=== PATIENT | male | born 1995 | race Two or more races ===

== ENCOUNTER 2020-11-30 22:44 | Inpatient (IN) | payer MEDICAID, OTHER ==
[~2020-11-30] VITALS: Ht 167.6 cm; Wt 49.9 kg
[2020-11-30 23:31] LABS: BASOPHILS % (AUTO) 0.6 % (0.0-2.0); EOSINOPHILS % (AUTO) 0.9 % (1.0-6.0); HEMATOCRIT 45.6 % (41-53); HEMOGLOBIN 15.5 g/dL (13.5-17.5); LYMPHOCYTES # (AUTO) 1.5 K/uL (1.0-4.8); LYMPHOCYTES % (AUTO) 12.6 % (22.0-44.0); MEAN CORPUSCULAR HEMOGLOBIN 32.6 pg (26.0-34.0); MEAN CORPUSCULAR VOLUME 96 fL (80-100); MONOCYTES # (AUTO) 0.6 K/uL (0.1-1.0); NEUTROPHILS # (AUTO) 9.5 K/uL (1.8-7.7); NEUTROPHILS % (AUTO) 80.9 % (40.0-70.0); PLATELET COUNT (AUTO) 287 K/uL (150-450); RED BLOOD CELL COUNT(AUTO) 4.76 MIL/uL (4.50-5.90); RED CELL DISTRIBUTION WIDTH 13.7 % (11.5-14.5)
[2020-11-30 23:42] LABS: ANION GAP 15 mmol/L (8-16); CALCIUM, TOTAL 9.1 mg/dL (8.8-10.5); CARBON DIOXIDE 28 mmol/L (22-29); CHLORIDE 102 mmol/L (98-107); CREATININE 0.96 mg/dL (0.60-1.30); GLOMERULAR FILTR. RATE CALC > 60 mL/min (>60); GLUCOSE,RANDOM 172 mg/dL (70-110); POTASSIUM 3.8 mmol/L (3.5-5.1); SODIUM SERUM 145 mmol/L (136-145); UREA NITROGEN, BLOOD 13 mg/dL (7-18)
[2020-11-30] MEDS ORDERED: QUEtiapine FUMARATE 100 MG TABLET PO PRN (23:45)
[2020-11-30 23:48] LABS: ALANINE AMINOTRANSFERASE 24 U/L (12-78); ALBUMIN 4.2 g/dL (3.4-5.0); ALKALINE PHOSPHATASE 90 U/L (46-116); ASPARTATE AMINOTRANSFERASE 15 U/L (15-37); BILIRUBIN,TOTAL 0.3 mg/dL (0.1-1.0); TOTAL PROTEIN, SERUM 7.8 g/dL (6.4-8.2)
[2020-12-01 00:31] LABS: APPEARANCE,URINE CLEAR (CLEAR); BILIRUBIN,URINE NEGATIVE (NEGATIVE); GLUCOSE, URINE (UA) 100 mg/dL (NEGATIVE); KETONES,URINE TRACE mg/dL (NEGATIVE); LEUKOCYTE ESTERASE ,URINE NEGATIVE (NEGATIVE); NITRATE,URINE NEGATIVE (NEGATIVE); OCCULT BLOOD,URINE NEGATIVE (NEGATIVE); PROTEIN,URINE NEGATIVE (NEGATIVE)
[2020-12-01 00:33] LABS: COVID AG,FIA SOURCE NASOPHARYNGEAL
[2020-12-01 00:46] LABS: CHOL/HDL RATIO 2.8 (4.2-7.3); CHOLESTEROL 197 mg/dL (131-200); HDL CHOLESTEROL 70 mg/dL (40-60); LDL CHOL (CALC.) 99 mg/dL (0-130); TRIGLYCERIDES 142 mg/dL (15-150)
[2020-12-01 00:53] LABS: BACTERIA,URINE Rare /HPF (None Seen); RBC,URINE None Seen /HPF (0-2); WBC,URINE 0-2 /HPF (0-5)
[2020-12-01 01:08] LABS: AMPHET/METH SCREEN,URINE NEGATIVE (NEGATIVE); BARBITURATE SCREEN, URINE NEGATIVE (NEGATIVE); BENZODIAZEPINES SCREEN,URINE NEGATIVE (NEGATIVE); CANNABINOID SCREEN,URINE POSITIVE (NEGATIVE); COCAINE SCREEN,URINE NEGATIVE (NEGATIVE); METHADONE SCREEN, URINE NEGATIVE (NEGATIVE); OPIATE SCREEN,URINE NEGATIVE (NEGATIVE)
[2020-12-01 01:26] LABS: PHENCYCLIDINE SCREEN,URINE NEGATIVE (NEGATIVE)
[2020-12-01 01:38] VITALS: BP 149/80
[2020-12-01 02:19] VITALS: BP 149/80
[2020-12-01] MEDS ORDERED: MAGNESIUM HYDROXIDE SUSPENSION 30 ML UDCUP PO PRN (09:45)
[2020-12-01] MEDS ORDERED: ONDANSETRON HCL 4 MG TABLET PO PRN (09:45)
[2020-12-01] MEDS ORDERED: LOPERAMIDE HCL 2 MG CAPSULE PO PRN (09:45)
[2020-12-01] MEDS ORDERED: PETROLATUM,WHITE 28 GM JELLY TP PRN (09:45)
[2020-12-01] MEDS ORDERED: GuaiFENesin/D-METHORPHAN [SUGAR-FREE] 200-20MG/10 ML SYRUP UDCUP PO PRN (09:45)
[2020-12-01] MEDS ORDERED: CloNIDine HCL 0.1 MG TABLET PO PRN (09:45)
[2020-12-01] MEDS ORDERED: NICOTINE 14 MG/24 HOUR PATCH TD PRN (09:45)
[2020-12-01] MEDS ORDERED: ALBUTEROL SULFATE HFA 90 MCG/PUFF 8 GM INHALER IH PRN (09:45)
[2020-12-01] MEDS ORDERED: DOCUSATE SODIUM 100 MG CAPSULE PO PRN (09:45)
[2020-12-01] MEDS ORDERED: MAG HYDROX/AL HYDROX/SIMETH ES 30 ML SUSPENSION UDCUP PO PRN (09:45)
[2020-12-01 10:00] VITALS: BP 124/84
[2020-12-01] MEDS: ARIPiprazole 5 MG TABLET PO SCH ×2 (13:45→14:29)
[2020-12-01 16:22] VITALS: BP 129/81
[2020-12-01 17:58] VITALS: BP 126/77
[2020-12-01] MEDS: ACETAMINOPHEN 325 MG TABLET PO PRN (17:58)
[2020-12-01 18:58] VITALS: BP 125/69
[2020-12-02] MEDS: ARIPiprazole 5 MG TABLET PO SCH (09:00)
[2020-12-02 09:20] VITALS: BP 119/76
[2020-12-02 16:53] VITALS: BP 124/87
[2020-12-02 17:54] VITALS: BP 127/80
[2020-12-02] MEDS: ACETAMINOPHEN 325 MG TABLET PO PRN (17:54)
[2020-12-02 18:54] VITALS: BP 118/75
[2020-12-03] MEDS: ZOLPIDEM TARTRATE 10 MG TABLET PO PRN ×2 (00:23→20:59)
[2020-12-03] MEDS: ARIPiprazole 5 MG TABLET PO SCH (09:00)
[2020-12-03 09:20] VITALS: BP 132/83
[2020-12-03 16:00] VITALS: BP 113/68
[2020-12-03] MEDS: LORazepam 2 MG TABLET PO PRN (19:50)
[2020-12-04] MEDS: ARIPiprazole 5 MG TABLET PO SCH (09:27)
[2020-12-04] MEDS: LORazepam 2 MG TABLET PO PRN ×2 (09:28→22:39)
[2020-12-04 09:30] VITALS: BP 136/70
[2020-12-04 20:05] VITALS: BP 111/61
[2020-12-04] MEDS: ZOLPIDEM TARTRATE 10 MG TABLET PO PRN (22:39)
[2020-12-05] MEDS: ARIPiprazole 5 MG TABLET PO SCH (08:09)
[2020-12-05 09:56] VITALS: BP 115/61
[2020-12-05] MEDS: ZOLPIDEM TARTRATE 10 MG TABLET PO PRN (21:27)
[2020-12-05] MEDS: LORazepam 2 MG TABLET PO PRN (21:27)
[2020-12-06] MEDS: ARIPiprazole 5 MG TABLET PO SCH (08:30)
[2020-12-06 09:25] VITALS: BP 129/82
[2020-12-06] MEDS: IBUPROFEN 400 MG TABLET PO PRN (10:44)
[2020-12-06 16:25] VITALS: BP 122/81
[2020-12-06 17:51] VITALS: BP 119/79
[2020-12-06] MEDS: ACETAMINOPHEN 325 MG TABLET PO PRN (17:51)
[2020-12-06 18:51] VITALS: BP 121/80
[2020-12-06] MEDS: LORazepam 2 MG TABLET PO PRN (21:19)
[2020-12-06] MEDS: ZOLPIDEM TARTRATE 10 MG TABLET PO PRN (21:19)
[2020-12-07 08:23] VITALS: BP 126/84
[2020-12-07] MEDS: ARIPiprazole 5 MG TABLET PO SCH (09:04)
[2020-12-07] MEDS: ACETAMINOPHEN 325 MG TABLET PO PRN ×2 (09:35→20:13)
[2020-12-07 16:25] VITALS: BP 125/76
[2020-12-07 20:13] VITALS: BP 129/76
[2020-12-07] MEDS: LORazepam 2 MG TABLET PO PRN (21:05)
[2020-12-07] MEDS: ZOLPIDEM TARTRATE 10 MG TABLET PO PRN (21:05)
[2020-12-07 21:13] VITALS: BP 116/77
[2020-12-07 21:51] LABS: COVID AG,FIA SOURCE NASAL SWAB
[2020-12-08] MEDS: ARIPiprazole 5 MG TABLET PO SCH (08:14)
[2020-12-08 08:25] VITALS: BP 132/80
[2020-12-08 14:35] VITALS: BP 117/70
[2020-12-08] MEDS: ACETAMINOPHEN 325 MG TABLET PO PRN (14:49)
[2020-12-08 16:06] VITALS: BP 117/77
[2020-12-08] MEDS: IBUPROFEN 400 MG TABLET PO PRN (17:43)
[2020-12-08] MEDS: ZOLPIDEM TARTRATE 10 MG TABLET PO PRN (20:55)
[2020-12-09 04:06] VITALS: BP 128/97
[2020-12-09 08:00] VITALS: BP 124/74
[2020-12-09] MEDS: ARIPiprazole 5 MG TABLET PO SCH (08:13)
[2020-12-09 10:35] VITALS: BP 132/80
[2020-12-09] MEDS: ACETAMINOPHEN 325 MG TABLET PO PRN (10:58)
[2020-12-09 12:00] VITALS: BP 114/70
[2020-12-09 17:08] VITALS: BP 124/75
[2020-12-10 08:22] VITALS: BP 128/74
[2020-12-10] MEDS: ARIPiprazole 5 MG TABLET PO SCH (08:23)
[2020-12-10 16:30] VITALS: BP 127/82
[2020-12-10] MEDS: ZOLPIDEM TARTRATE 10 MG TABLET PO PRN (20:13)
[2020-12-11 03:49] VITALS: BP 125/80
[2020-12-11 08:00] VITALS: BP 133/90
[2020-12-11] MEDS: ARIPiprazole 5 MG TABLET PO SCH (08:11)
[2020-12-11 08:56] LABS: COVID AG,FIA SOURCE NASAL SWAB
[2020-12-11 16:51] VITALS: BP 106/80
[2020-12-11] MEDS: ZOLPIDEM TARTRATE 10 MG TABLET PO PRN (20:39)
[2020-12-12 04:30] VITALS: BP 126/84
[2020-12-12] MEDS: LORazepam 2 MG TABLET PO PRN ×2 (04:31→16:32)
[2020-12-12] MEDS: ARIPiprazole 5 MG TABLET PO SCH (08:01)
[2020-12-12 08:45] VITALS: BP 121/79
[2020-12-12 17:38] VITALS: BP 117/85
[2020-12-12] MEDS: ZOLPIDEM TARTRATE 10 MG TABLET PO PRN ×2 (20:15→21:31)
[2020-12-13 04:59] VITALS: BP 120/73
[2020-12-13] MEDS: ARIPiprazole 5 MG TABLET PO SCH (08:34)
[2020-12-13 08:37] VITALS: BP 139/90
[2020-12-13] MEDS: ACETAMINOPHEN 325 MG TABLET PO PRN (11:17)
[2020-12-13 16:19] VITALS: BP 104/81
[2020-12-13] MEDS: LORazepam 2 MG TABLET PO PRN (19:35)
[2020-12-13] MEDS: ZOLPIDEM TARTRATE 10 MG TABLET PO PRN (20:31)
[2020-12-14 04:37] VITALS: BP 130/69
[2020-12-14 08:25] VITALS: BP 110/79
[2020-12-14] MEDS: ARIPiprazole 5 MG TABLET PO SCH (08:38)
[2020-12-14] MEDS: LORazepam 2 MG TABLET PO PRN (13:06)
[2020-12-14 17:09] VITALS: BP 116/63
[2020-12-14] MEDS: ZOLPIDEM TARTRATE 10 MG TABLET PO PRN (22:03)
[2020-12-15 03:46] VITALS: BP 135/73
[2020-12-15 08:48] VITALS: BP 119/54
[2020-12-15] MEDS: ARIPiprazole 5 MG TABLET PO SCH (08:48)
[2020-12-15 16:04] VITALS: BP 121/83
[2020-12-15 18:03] VITALS: BP 120/75
[2020-12-15] MEDS: ACETAMINOPHEN 325 MG TABLET PO PRN (18:03)
[2020-12-15 20:31] VITALS: BP 127/80
[2020-12-15] MEDS: LORazepam 2 MG TABLET PO PRN (20:31)
[2020-12-15 21:31] VITALS: BP 119/78
[2020-12-16 08:12] VITALS: BP 118/70
[2020-12-16] MEDS: ARIPiprazole 5 MG TABLET PO SCH (08:18)
[2020-12-16] MEDS: ACETAMINOPHEN 325 MG TABLET PO PRN (14:42)
[2020-12-16 14:43] VITALS: BP 118/71
[2020-12-16 16:08] VITALS: BP 118/71
[2020-12-16] MEDS: LORazepam 2 MG TABLET PO PRN (20:10)
[2020-12-17] MEDS: ARIPiprazole 5 MG TABLET PO SCH (08:35)
[2020-12-17 08:43] VITALS: BP 128/80
[2020-12-17] MEDS ORDERED: ARIP5TAB37 PO (09:05)
== END 2020-12-17 12:05 | disposition home or self-care (01) | DRG 751 ==
LOC: EMS 22:48 → UNDOADMIN 12-01 00:34 → 3EI 12-01 00:34 → 3EX 12-12 11:41
DX: F29 Unspecified psychosis not due to a substance or known physiological condition (principal); E44.0 Moderate protein-calorie malnutrition; R45.851 Suicidal ideations; F32.9 Major depressive disorder, single episode, unspecified; Z20.822 Contact with and (suspected) exposure to COVID-19; Z79.899 Other long term (current) drug therapy; F12.10 Cannabis abuse, uncomplicated; D72.829 Elevated white blood cell count, unspecified; R73.9 Hyperglycemia, unspecified; F14.90 Cocaine use, unspecified, uncomplicated; Z68.1 Body mass index [BMI] 19.9 or less, adult
CPT/HCPCS: 80053; 80061; 81001; 83036; 85025; 99285; G0378; G0480